=== PATIENT | female | born 1945 | race Caucasian/White ===

== ENCOUNTER → 2017-07-21 | Outpatient (CLI) | payer MEDICARE ==
[~2017-07-21] MED LIST: ATOR40TA78 PO; LEVO88TA4 PO; LISI1TAB7 PO; METF500T4 PO; MONT10TA9 PO; OMEP-110 PO
== END ==
LOC: RAD 15:55
PROVIDERS: ATTEND Internal Medicine
DX: M79.605 Pain in left leg (principal)

== ENCOUNTER → 2017-08-05 | Outpatient (CLI) | payer MEDICARE ==
[~2017-08-05] MED LIST changes: +OMNIPAQUE 350 MG/ML, 150 ML BOTTLE ONE
== END ==
LOC: CFH 10:34
PROVIDERS: ATTEND Internal Medicine
DX: M79.604 Pain in right leg (principal); M79.89 Other specified soft tissue disorders; Z85.42 Personal history of malignant neoplasm of other parts of uterus
CPT/HCPCS: 72193; Q9967

== ENCOUNTER → 2017-12-08 | Outpatient (CLI) | payer MEDICARE ==
[~2017-12-08] MED LIST changes: -METF500T4 PO; +METF500T5 PO; -OMNIPAQUE 350 MG/ML, 150 ML BOTTLE ONE
== END | disposition home or self-care (01) ==
LOC: CFH 09:34
PROVIDERS: ATTEND Internal Medicine
DX: I35.8 Other nonrheumatic aortic valve disorders (principal); I10 Essential (primary) hypertension; E78.5 Hyperlipidemia, unspecified; Z85.42 Personal history of malignant neoplasm of other parts of uterus
CPT/HCPCS: 93306

== ENCOUNTER 2019-09-14 16:26 | Observation (INO) | payer MEDICARE ==
[~2019-09-14] VITALS: Ht 149.9 cm; Wt 63.0 kg
[~2019-09-14 16:26] MED LIST changes: +LISI1TAB20 PO; -LISI1TAB7 PO; +METF500T17 PO; -METF500T5 PO; +MONT10TA11 PO; -MONT10TA9 PO
--- NOTE | 2019-09-14 16:52 | NUR ---
BENY AUSTIN [phone]
--- NOTE | 2019-09-14 16:59 | NUR ---
Pt arrives to ed with c/o of abd pain and general fatigue with a headache. Pt was tested yesterday for covid-19, pt does not know if she is positive still. Pt denies any trauma. Pt has good even unlabored respirations. Pt has good cap refill. Pt is slightly diaphoretic. Pt connected to monitors and call light in reach. VSS. Awaiting further orders.
[2019-09-14] MEDS ORDERED: SODIUM CHLORIDE 0.9% 1,000ML IVBOLUS ONE (17:30)
[2019-09-14] MEDS ORDERED: PANT40TA5 PO (17:31)
[2019-09-14 18:26] LABS: ALANINE AMINOTRANSFERASE 35 U/L (12-78); ALBUMIN 3.9 g/dL (3.4-5.0); ANION GAP 13 mmol/L (5-15); CALCIUM 9.2 mg/dL (8.5-10.1); CHLORIDE 84 mmol/L (98-107); CREATININE 1.48 mg/dL (0.55-1.02)
[2019-09-14 18:28] LABS: ALKALINE PHOSPHATASE 88 U/L (45-117); BILIRUBIN,TOTAL 0.8 mg/dL (0.2-1.0); TOTAL PROTEIN 7.3 g/dL (6.4-8.2)
[2019-09-14 18:31] LABS: BASOPHILS % (AUTO) 0 % (0-1); EOSINOPHILS % (AUTO) 1 % (1-7); LYMPHOCYTES # (AUTO) 1.55 x10^3/uL (1-3.4); LYMPHOCYTES % (AUTO) 15 % (22-44); MD NO; MEAN CORPUSCULAR HEMOGLOBIN 30.2 pg (27.0-34.8); MEAN CORPUSCULAR HGB CONC 33.4 g/dL (32.4-35.8); MEAN CORPUSCULAR VOLUME 90.3 fL (80-100); MONOCYTES # (AUTO) 0.97 x10^3/uL (0.2-0.8); MONOCYTES % (AUTO) 9 % (2-9); NEUTROPHILS # (AUTO) 7.78 x10^3/uL (1.8-6.8); NEUTROPHILS % (AUTO) 75 % (42-75); PLATELET COUNT 349 x10^3/uL (130-400); RED BLOOD COUNT 4.37 x10^6/uL (3.82-5.3); RED CELL DISTRIBUTION WIDTH 13.2 % (9.6-15.2)
--- NOTE | 2019-09-14 18:40 | NUR ---
PT OOB AND AMBULATES TO BATHROOM. INSTRUCTED ON COLLECTION OF URINE SAMPLE
[2019-09-14] MEDS ORDERED: SODIUM CHLORIDE 0.9% 1,000 ML IV ONE (18:52)
--- NOTE | 2019-09-14 18:59 | NUR ---
UPDATE TO SON PROVIDED.
--- NOTE | 2019-09-14 19:04 | NUR ---
Pt medicated per emar.
[2019-09-14 19:16] LABS: ACETONE, SERUM Trace (Negative); TROPONIN I 0.031 ng/mL (0.000-0.045)
--- NOTE | 2019-09-14 19:28 | NUR ---
UA SENT TO LAB.
[2019-09-14 19:35] LABS: MICROSCOPIC AUTO
--- NOTE | 2019-09-14 20:08 | NUR ---
PT TO CT.
[2019-09-14] MEDS ORDERED: OMNIPAQUE 350 MG/ML, 100ML BOTTLE ONE (20:30)
[2019-09-14] MEDS ORDERED: CEFTRIAXONE PMX 1GM/50ML 50 ML IV ONE (20:30)
[2019-09-14] MEDS ORDERED: CEFTRIAXONE PMX 1GM/50ML 50 ML ONE (20:31)
--- NOTE | 2019-09-14 20:52 | NUR ---
pt medicated per jul. pt then up to restroom and back into bed with steady gait. pt placed in position of comfort. pt denies further needs at this time. call light on lap.
[2019-09-14] MEDS ORDERED: SODIUM CHLORIDE FLUSH 10ML SYR IVF PRN (21:00)
[2019-09-14] MEDS ORDERED: POTASSIUM CHLORIDE 20 MEQ in SODIUM CHLORIDE 0.9% 1,000 ML IV ONE (21:00)
--- NOTE | 2019-09-14 21:11 | NUR ---
THROUGHPUT RN: CALLED [facility] D/T PT'S PROMINENCE INSURANCE. PT TO STAY AT [facility] FOR ADMISSION.
[2019-09-14] MEDS ORDERED: POTASSIUM CHLORIDE 20 MEQ TAB.ER.PRT PO ONE ×2 (21:30→22:00)
[2019-09-14] MEDS: NS + 40MEQ KCL 1,000 ML IV SCH (21:30)
[2019-09-14] MEDS ORDERED: MAALOX/HYOSCYAMINE/LIDOCAINE 45 ML BTL PO PRN (21:30)
[2019-09-14] MEDS ORDERED: CEFTRIAXONE PMX 1GM/50ML 50 ML IV SCH (21:30)
[2019-09-14] MEDS ORDERED: BISACODYL 10 MG SUPP PR PRN (21:30)
[2019-09-14] MEDS: HEPARIN 5,000 UNITS/ML, 1ML SQ SCH (21:30)
[2019-09-14] MEDS ORDERED: ONDANSETRON 2MG/ML, 2ML IVPush PRN (21:30)
[2019-09-14] MEDS ORDERED: POLYETHYLENE GLYCOL 17 GM PACKET PO PRN (21:30)
[2019-09-14] MEDS ORDERED: ATORVASTATIN 40 MG TABLET PO SCH (21:30)
[2019-09-14] MEDS ORDERED: hydrALAzine 20 MG/ML, 1ML IVPush PRN (21:30)
[2019-09-14] MEDS ORDERED: morphine SULFATE 10 MG/ML, 1ML IVPush PRN (21:30)
[2019-09-14] MEDS ORDERED: ACETAMINOPHEN 325 MG TABLET PO PRN (21:30)
--- NOTE | 2019-09-14 21:47 | NUR ---
Hospital bed requested.
[2019-09-14] MEDS ORDERED: NS + 40MEQ KCL 1,000 ML IV ONE (21:55)
[2019-09-14] MEDS ORDERED: POTASSIUM CHLORIDE 20 MEQ TAB.ER.PRT ONE (21:55)
[2019-09-14] MEDS ORDERED: HEPARIN 5,000 UNITS/ML, 1ML ONE (21:55)
[2019-09-14 22:02] LABS: ANION GAP 8 mmol/L (5-15); CALCIUM 8.4 mg/dL (8.5-10.1); CHLORIDE 89 mmol/L (98-107); CREATININE 1.08 mg/dL (0.55-1.02)
--- NOTE | 2019-09-14 22:15 | NUR ---
Imani patel wants 40kcl iv bag not 20meq one hung at this time.
--- NOTE | 2019-09-14 22:23 | NUR ---
Pt also provided with hydration.
--- NOTE | 2019-09-14 22:23 | NUR ---
Pt given pillow, medicated per emar and placed on hospital bed.
--- NOTE | 2019-09-14 22:45 | NUR ---
Pt medicated per emar. Vitals wnl
--- NOTE | 2019-09-14 22:58 | NUR ---
Report received from ROLY Horton. This RN to assume care.
--- NOTE | 2019-09-14 23:34 | NUR ---
Patient ambulated to bathroom.
--- NOTE | 2019-09-15 00:14 | NUR ---
REPORT TO RIP DUNHAM
[2019-09-15 00:53] VITALS: BP 110/70
[2019-09-15 02:19] LABS: ANION GAP 9 mmol/L (5-15); CALCIUM 8.1 mg/dL (8.5-10.1); CHLORIDE 96 mmol/L (98-107)
[2019-09-15 02:28] LABS: CHLORIDE,URINE RANDOM 38 mmol/L; POTASSIUM,URINE RANDOM 4 mmol/L; SODIUM,URINE RANDOM 42 mmol/L
[2019-09-15] MEDS ORDERED: MAGNESIUM SULFATE/D5W 100 ML IVPB ONE (03:00)
[2019-09-15] MEDS: HEPARIN 5,000 UNITS/ML, 1ML SQ SCH ×2 (05:05→13:45)
[2019-09-15] MEDS: NS + 40MEQ KCL 1,000 ML IV SCH (05:30)
[2019-09-15] MEDS ORDERED: LEVOTHYROXINE 75 MCG TABLET PO SCH (06:00)
[2019-09-15 07:17] VITALS: BP 119/47
[2019-09-15] MEDS: INSULIN LISPRO 100 UNITS/ML, PEN SQ-INSULIN SCH ×3 (08:56→16:23)
[2019-09-15] MEDS ORDERED: OMEPRAZOLE 20 MG CAPSULE.DR PO SCH (09:00)
[2019-09-15] MEDS ORDERED: SENNA/DOCUSATE TABLET PO SCH (09:00)
[2019-09-15] MEDS ORDERED: TEMPLATE NON-FORMULARY MED. (Lisinopril/Hydrochlorothiazide** (Lisinopril-Hctz 20-25 Mg Ta PO SCH (09:00)
[2019-09-15] MEDS ORDERED: PANTOPRAZOLE 40MG TABLET PO SCH (09:00)
[2019-09-15 09:43] LABS: BASOPHILS # (AUTO) 0.04 x10^3/uL (0-0.1); BASOPHILS % (AUTO) 0 % (0-1); EOSINOPHILS # (AUTO) 0.12 x10^3/uL (0-0.4); EOSINOPHILS % (AUTO) 1 % (1-7); LYMPHOCYTES # (AUTO) 1.25 x10^3/uL (1-3.4); LYMPHOCYTES % (AUTO) 13 % (22-44); MD NO; MEAN CORPUSCULAR HEMOGLOBIN 30.7 pg (27.0-34.8); MEAN CORPUSCULAR HGB CONC 33.8 g/dL (32.4-35.8); MEAN CORPUSCULAR VOLUME 90.9 fL (80-100); MEAN PLATELET VOLUME 6.2 fL (7.4-10.4); MONOCYTES # (AUTO) 0.67 x10^3/uL (0.2-0.8); MONOCYTES % (AUTO) 7 % (2-9); NEUTROPHILS # (AUTO) 7.95 x10^3/uL (1.8-6.8); NEUTROPHILS % (AUTO) 79 % (42-75); PLATELET COUNT 298 x10^3/uL (130-400); RED BLOOD COUNT 4.45 x10^6/uL (3.82-5.3); RED CELL DISTRIBUTION WIDTH 13.3 % (9.6-15.2)
[2019-09-15 09:54] LABS: ANION GAP 8 mmol/L (5-15); CALCIUM 8.7 mg/dL (8.5-10.1); CHLORIDE 102 mmol/L (98-107)
[2019-09-15 09:58] LABS: CREATININE 0.77 mg/dL (0.55-1.02); TROPONIN I 0.021 ng/mL (0.000-0.045)
[2019-09-15 11:02] LABS: ACETONE, SERUM Trace (Negative)
[2019-09-15 12:30] LABS: CLOSTRIDIUM DIFFICILE ANTIGEN NEGATIVE; CLOSTRIDIUM DIFFICILE TOXIN NEGATIVE (Negative)
[2019-09-15 13:47] VITALS: BP 115/45
[2019-09-15] MEDS ORDERED: metFORMIN 500 MG TABLET PO SCH (17:00)
== END 2019-09-15 18:10 | disposition home or self-care (01) ==
LOC: ED 17:13 → INTOOBSV 20:52 → EDIP 20:52 → 4NW 09-15 00:29
PROVIDERS: ADMIT Family Medicine; ATTEND Internal Medicine Infectious Disease
DX: E11.10 Type 2 diabetes mellitus with ketoacidosis without coma (principal); N17.9 Acute kidney failure, unspecified; E87.1 Hypo-osmolality and hyponatremia; E87.2 Acidosis; N30.00 Acute cystitis without hematuria; E03.9 Hypothyroidism, unspecified; E78.00 Pure hypercholesterolemia, unspecified; E86.0 Dehydration; E87.6 Hypokalemia; E78.5 Hyperlipidemia, unspecified; I10 Essential (primary) hypertension; K25.9 Gastric ulcer, unspecified as acute or chronic, without hemorrhage or perforation; E87.8 Other disorders of electrolyte and fluid balance, not elsewhere classified; K21.9 Gastro-esophageal reflux disease without esophagitis; Z85.42 Personal history of malignant neoplasm of other parts of uterus; Z90.49 Acquired absence of other specified parts of digestive tract; Z90.710 Acquired absence of both cervix and uterus; Z79.4 Long term (current) use of insulin; Z79.899 Other long term (current) drug therapy
CPT/HCPCS: 36415; 71045; 74177; 80048; 80053; 81001; 82010; 82436; 82570; 82962; 83036; 83605; 83735; 83880; 83935; 84133; 84300; 84443; 84484; 85025; 87077; 87086; 87186; 87324; 93005; 96361; 96365; 96366; 96367; 96368; 96372; 99285; G0378; J0696; J1644; J3480; J7030; Q9967; 96374

== ENCOUNTER 2020-07-13 05:38 | Emergency (ER) | payer MEDICARE ==
[~2020-07-13] VITALS: Ht 154.9 cm; Wt 62.9 kg
[~2020-07-13 05:38] MED LIST changes: -MONT10TA11 PO; +MONT10TA17 PO; +PANT40TA6 PO
--- NOTE | 2020-07-13 05:44 | NUR ---
INITIAL PT CONTACT. PT PRESENTS TO ED C/O FACIAL SWELLING THAT BEGAN LAST NIGHT AT APPROX 1900, "STARTED AFTER EATING BREAD". PT STATES IT BEGAN "RIGHT BELOW THE NOSE AND SPREAD ACROSS MY FACE, NOW IT'S GOING TOWARDS MY EYES". PT DENIES ANY DIFFICULTY BREATHING OR SWALLOWING. PT SPEAKING IN FULL SENTENCES, NO RESPIRATORY DISTRESS NOTED. PT STATES SHE TOOK BENADRYL LAST NIGHT BUT NO IMPROVEMENT, "IT'S ACTUALLY GOTTEN WORSE". PT SITTING UPRIGHT ON [place], IMANI. CALL LIGHT IN REACH. ERP AT BEDSIDE.
[2020-07-13 06:29] VITALS: BP 122/50
--- NOTE | 2020-07-13 06:34 | NUR ---
Patient given discharge instructions and they have confirmed that they understand the instructions. Patient ambulatory with steady gait.
== END 2020-07-13 06:39 | disposition home or self-care (01) ==
LOC: ED 06:19
DX: T78.3XXA Angioneurotic edema, initial encounter (principal); R22.0 Localized swelling, mass and lump, head; I10 Essential (primary) hypertension; E11.9 Type 2 diabetes mellitus without complications
CPT/HCPCS: 99283; J7512